=== PATIENT | female | born 1950 | race Caucasian/White ===

== ENCOUNTER 2017-11-20 17:35 | Emergency (ER) | payer OTHER ==
[~2017-11-20] VITALS: Ht 152.4 cm; Wt 88.0 kg
--- NOTE | 2017-11-20 17:40 | NUR ---
AAOX3 BIBRA 87 from dialysis center, did not finish the dialysis, c/o SOB, SPO2=87% on RA, placed on NC at 2L/min now SPO2=96%. Patient normally is not on NC. Resp is labored. Placed on monitor and assisted to hospital gown. Dr Hernandez at for eval.
--- NOTE | 2017-11-20 18:04 | NUR ---
Patient can't urinate at this moment, Dr Hernandez made aware.
[2017-11-20 18:08] LABS: BASOPHILS % (AUTO) 0.1 % (0.0-2.0); EOSINOPHILS % (AUTO) 0.3 % (0.0-6.0); HEMATOCRIT 29 % (33-45); HEMOGLOBIN 9.9 g/dL (11.5-14.8); LYMPHOCYTES # (AUTO) 1.1 /CMM (0.8-4.8); LYMPHOCYTES % (AUTO) 7.3 % (20.0-44.0); MEAN CORPUSCULAR HGB CONC 34 g/dl (31.0-36.0); MEAN CORPUSCULAR VOLUME 92 fL (82-100); MONOCYTES # (AUTO) 1.3 /CMM (0.1-1.30); NEUTROPHILS % (AUTO) 83.3 % (43.0-81.0); PLATELET COUNT (AUTO) 96 /CMM (150-450); RDW COEFFICIENT OF VARIATION 20.8 (11.5-15.0); RED BLOOD CELL COUNT(AUTO) 3.16 MIL/uL (4.0-5.2); WHITE BLOOD COUNT (AUTO) 14.4 K/uL (4.3-11.0)
[2017-11-20] MEDS ORDERED: IPRATROPIUM NEB FS 0.5 MG/2.5 ML AMPUL.NEB ONE (18:10)
[2017-11-20] MEDS ORDERED: ALBUTEROL FS 2.5 MG/0.5 ML VIAL.NEB ONE (18:10)
[2017-11-20 18:16] LABS: CALCIUM, SERUM 8.1 mg/dL (8.5-10.1); CREATININE 3.8 mg/dL (0.6-1.3); POTASSIUM 3.2 mmol/L (3.5-5.1)
[2017-11-20 18:18] LABS: INR 1.38 (0.85-1.15)
[2017-11-20 18:24] LABS: ALBUMIN 1.9 g/dL (3.4-5.0); BILIRUBIN,DIRECT 0.6 mg/dL (0.0-0.2); BILIRUBIN,TOTAL 1.5 mg/dL (0.2-1.0); TOTAL PROTEIN, SERUM 5.5 g/dL (6.4-8.2); TROPONIN I 0.197 ng/mL (0.00-0.056)
--- NOTE | 2017-11-20 18:24 | NUR ---
Breathing treatment at .
[2017-11-20] MEDS ORDERED: IPRATROPIUM NEB FS 0.5 MG/2.5 ML AMPUL.NEB NEB ONE (18:30)
[2017-11-20] MEDS ORDERED: ALBUTEROL FS 2.5 MG/0.5 ML VIAL.NEB NEB ONE (18:30)
[2017-11-20] MEDS ORDERED: VANCOMYCIN 1 GM in IV D5W 250 ML IV ONE (19:00)
[2017-11-20] MEDS ORDERED: PIPERACILLIN /TAZOBACTAM 2.25 G in IV D5W 50 ML IV ONE (19:00)
--- NOTE | 2017-11-20 19:10 | NUR ---
REPORT GIVEN TO PRAVIN EVERETT FOR MARY.
--- NOTE | 2017-11-20 19:12 | NUR ---
RECEIVED REPORT FROM PRAVIN SAMS FOR MARY. PT APPEARS COMFORTABLE.
--- NOTE | 2017-11-20 19:21 | NUR ---
CALLED [facility], EXPECTING A CALL BACK FROM A [facility]
--- NOTE | 2017-11-20 19:21 | NUR ---
BROTHER AT BEDSIDE
[2017-11-20] MEDS ORDERED: POTASSIUM CHLORIDE 10 MEQ TABLET.SA PO ONE (19:30)
[2017-11-20] MEDS ORDERED: POTASSIUM CHLORIDE 10 MEQ TABLET.SA ONE (19:45)
--- NOTE | 2017-11-20 20:45 | NUR ---
DR. FOY AT BEDSIDE SPEAKING TO PT REGARDING RESULTS/ POC
[2017-11-20] MEDS ORDERED: ASPIRIN 81 MG TAB.CHEW PO ONE (21:30)
[2017-11-20] MEDS ORDERED: ASPIRIN 81 MG TAB.CHEW ONE (21:32)
--- NOTE | 2017-11-20 21:52 | NUR ---
PT IS ACCEPTED AT [facility] UNDER DR TOURE . PT IS ASSIGNED TO ROOM [facility]. [phone] IS THE NUMBER FOR REPORT. [facility] TRAN[facility]ORT ETA OF [id number].
--- NOTE | 2017-11-20 22:21 | NUR ---
REPORT GIVEN TO PRAVIN GONSALEZ FROM [facility] PT ASSIGNED TO BED 4055-B
--- NOTE | 2017-11-20 22:40 | NUR ---
LEFT AC IV removed d/t not flushing. Catheter intact and site benign. Pressure and 4x4 applied to site. No bleeding noted.
--- NOTE | 2017-11-20 22:44 | NUR ---
REPORT GIVEN TO [facility]. PT AOX3 AWARE OF TRANSFER. PT WITH ALL PERSONAL BELONGINGS. PT VSS. PT IV INTACT AND PATENT. NO S/S INFECTION OR INFILTRATION NOTED. PT TO BE TRANSFERRED VIA [facility] TO [place] [id number]. PER [facility] TOOK OVER CARE.
[2017-11-20 22:47] VITALS: BP 126/72
== END 2017-11-20 22:49 | disposition short-term general hospital (02) ==
LOC: ER 17:36
DX: A41.9 Sepsis, unspecified organism (principal); R65.20 Severe sepsis without septic shock; E87.70 Fluid overload, unspecified; E87.6 Hypokalemia; D64.9 Anemia, unspecified; R94.5 Abnormal results of liver function studies; R79.89 Other specified abnormal findings of blood chemistry; I12.0 Hypertensive chronic kidney disease with stage 5 chronic kidney disease or end stage renal disease; N18.6 End stage renal disease; E11.22 Type 2 diabetes mellitus with diabetic chronic kidney disease; Z85.72 Personal history of non-Hodgkin lymphomas; Z88.2 Allergy status to sulfonamides; Z88.1 Allergy status to other antibiotic agents; Z88.6 Allergy status to analgesic agent; Z88.8 Allergy status to other drugs, medicaments and biological substances; Z60.2 Problems related to living alone
CPT/HCPCS: 36600; 71045; 80048; 80076; 82803; 83605; 84484; 85025; 85730; 87040 ×2; 93005; 94640; 96374; 96376; 99291; A4606; J2543; J3370; J7060 ×2; 36415; Z7610